=== PATIENT | male | born 1965 | race Caucasian/White ===

== ENCOUNTER 2019-09-05 02:00 | Emergency (ER) | payer BC ==
[2019-09-05] MEDS ORDERED: NS 0.9% 1000 ML** 1,000 ML IV ONE (02:11)
--- NOTE | 2019-09-05 02:23 | ED ---
Neck Pain - HPI Summary HPI Summary: This pt is a 54 Y/O M presenting to [facility] accompanied by his with a CC of throat swelling and pain, rated a 6/10 in severity, that has been present since 0900 09/04/19. He states that it feels like there is something there. He was prescribed ABx Tx by his PCP but states that he has had no positive effect. He denies any fever, SOB, headaches, CP, and N/V. He has no aggravating or alleviating factors. He has a pertinent FHx of HTN and is currently taking Lisinopril. - History of Current Complaint Chief Complaint: EDThroatPain Stated Complaint: SWOLLEN THROAT PER PT Time Seen by Provider: 09/05/19 02:11 Hx Obtained From: Patient Onset/Duration Of Injury/Symptoms: Hours - 17 Timing: Constant Onset/Duration: Sudden Onset, Still Present Severity Initially: Moderate Severity Currently: Moderate Pain Intensity: 6 Pain Scale Used: 0-10 Numeric Location: Diffuse - throat Character: Other: - swollen Aggravating Factors: Nothing Alleviating Factors: Nothing Associated Signs & Symptoms: Positive: Negative - SOB, CP, and N/V., Swelling. Negative: Fever, Headache - Allergies/Home Medications Allergies/Adverse Reactions: Allergies Allergy/AdvReac Type Severity Reaction Status Date / Time No Known Allergies Allergy Verified 09/05/19 02:04 Home Medications: Home Medications Albuterol Sulfate Hfa 1 puff INH SEE INSTRUCTIONS 09/05/19 [History Confirmed ] Amoxicillin/Clavulanate TAB* [Augmentin TAB 875*] 1 tab PO Q12HR 09/05/19 [ History Confirmed 09/05/19] Codeine Phosphate/Guaifenesin [Guaiatussin AC Liquid] 10 ml PO Q6HR 09/05/19 [ History Confirmed 09/05/19] Imitrex TAB* 1 tab PO SEE INSTRUCTIONS 09/05/19 [History Confirmed 09/05/19] Lidocaine 2% VISCOUS* 5 ml PO Q6HR 09/05/19 [History Confirmed 09/05/19] Lisinopril 1 tab PO DAILY 09/05/19 [History Confirmed 09/05/19] PMH/Surg Hx/FS Hx/Imm Hx Previously Healthy: Yes Respiratory History: Reports: Hx Asthma - YEARS AGO Infectious Disease History: No Infectious Disease History: Denies: Traveled Outside the [place] in Last 30 Days - Family History Known Family History: Positive: Hypertension - Social History Occupation: Employed Full-time Lives: With Family Alcohol Use: Rare Hx Substance Use: No Substance Use Type: Reports: None Hx Tobacco Use: No Smoking Status (MU): Never Smoked Tobacco Review of Systems Negative: Fever ENT: Other - swollen throat Positive: Sore Throat Negative: Chest Pain Negative: Shortness Of Breath Negative: Vomiting, Nausea Negative: Headache All Other Systems Reviewed And Are Negative: Yes Physical Exam - Summary Physical Exam Summary: Appearance: Well-appearing, Well-nourished, lying in bed comfortably Skin: Warm, dry, no obvious rash Eyes: sclera anicteric, no conjunctival pallor ENT: mucous membranes moist, pharynx appears normal, mild swelling on the left anterior neck, fulvous in appearance Neck: Supple, nontender Respiratory: Clear to auscultation, no signs of respiratory distress. No stridor and voice is horse Cardiovascular: Normal S1, S2. No murmurs. Normal distal pulses in tibial and radial bilaterally. Abdomen: Soft, nontender, normal active bowel sounds present Musculoskeletal: Normal, Strength/ROM Intact Neurological: A&Ox3, awake and alert, mentation is normal, speech is fluent and appropriate Psychiatric: affect is normal, does not appear anxious or depressed Triage Information Reviewed: Yes Vital Signs On Initial Exam: Initial Vitals Temp Pulse Resp BP Pulse Ox 97.1 F 83 14 169/114 94 09/05/19 02:01 09/05/19 02:01 09/05/19 02:01 09/05/19 02:01 09/05/19 02:01 Vital Signs Reviewed: Yes Procedures - Sedation Patient Received Moderate/Deep Sedation with Procedure: No Diagnostics - Vital Signs Vital Signs Temp Pulse Resp BP Pulse Ox 09/05/19 02:01 97.1 F 83 14 169/114 94 - Laboratory Result Diagrams: 09/05/19 02:27 09/05/19 02:27 Lab Statement: Any lab studies that have been ordered have been reviewed, and results considered in the medical decision making process. - CT Neck CT CT Interpretation Completed By: Radiologist Summary of CT Findings: 1. Very minimal right maxillary sinus disease. 2. Otherwise negative CT soft tissue neck. No abscess is seen. ED physician has reviewed this report. Neck Course/Dx - Course Course Of Treatment: This pt is a 54 Y/O M presenting to [facility] accompanied by his with a CC of throat swelling and pain that has been present since 0900 09/04/19. He states that it feels like there is something there. He was prescribed ABx Tx by his PCP but states that he has had no positive effect. His PE found that he had a fulvous and swollen left anterior neck with a normal pharynx. His respiratory exam found that he had no stridor and his voice was horse. The rest of his exam was normal. He has abnormaliteis in his BUN/ Creatinine ratio. His Neck CT found the followin. Very minimal right maxillary sinus disease. 2. Otherwise negative CT soft tissue neck. No abscess is seen. He will be discharged home with a Dx of phayrngitis. - Diagnoses Provider Diagnoses: Pharyngitis Discharge ED - Sign-Out/Discharge Documenting (check all that apply): Patient Departure - discharge - Discharge Plan Condition: Good Disposition: HOME Patient Education Materials: Pharyngitis (ED) Referrals: Dorian Brian NP [Primary Care Provider] - 3 Days (if not improving) - Billing Disposition and Condition Condition: GOOD Disposition: Home - Attestation Statements Document Initiated by Juan: Yes Documenting Bethibe: Dick May Provider For Whom Juan is Documenting (Include Credential): Genaro Macias MD Scribe Attestation: Dick Whitehead, scribed for Genaro Macias MD on 09/05/19 at 1904. Scribe Documentation Reviewed: Yes Provider Attestation: The documentation as recorded by the Dick urbina accurately reflects the service I personally performed and the decisions made by me, Genaro Macias MD Status of Scribe Document: Viewed
[2019-09-05 02:34] LABS: ABS Eosinophils 0.3 10^3/ul (0-0.6); ABS Lymphocytes 1.5 10^3/ul (1.0-4.8); ABS Monocytes 0.5 10^3/ul (0-0.8); ABS Neutrophils 3.7 10^3/ul (1.5-7.7); Eosinophil % 4.7 %; Hematocrit 45 % (42-52); Hemoglobin 15.3 g/dL (14.0-18.0); Lymphocyte % 24.1 %; Mean Corpuscular HGB Conc 34 g/dL (31-36); Mean Corpuscular Hemoglobin 30 pg (27-31); Mean Corpuscular Volume 86 fL (80-94); Mean Platelet Volume 6.3 fL (7.4-10.4); Nucleated Red Blood Cells % 0.2; Platelet Count 202 10^3/uL (150-450); Red Blood Count 5.16 10^6 /uL (4.18-5.48); Red Cell Distribution Width 13 % (10-15); White Blood Count 6.1 10^3/uL (3.5-10.8)
[2019-09-05 02:50] LABS: Albumin 4.2 g/dL (3.2-5.2); Albumin/Globulin Ratio 1.5 (1-3); BUN/Creatinine Ratio 23.8 (8-20); C Reactive Protein 3.21 mg/L (<8.01); Calcium 9.2 mg/dL (8.6-10.3); EGFR African American 115.7 (>60); EGFR Non-African American 95.6 (>60); Globulin 2.8 g/dL (2-4); Potassium 3.6 mmol/L (3.5-5.0); Total Bilirubin 0.9 mg/dL (0.2-1.0)
[2019-09-05] MEDS ORDERED: Iohexol 300* (CONTRAST) 10 ML SDV IV ONE (02:59)
[2019-09-05 04:40] VITALS: BP 147/92
== END 2019-09-05 04:26 | disposition home or self-care (01) ==
LOC: ED 02:00
DX: J02.9 Acute pharyngitis, unspecified (principal); J32.0 Chronic maxillary sinusitis; J45.909 Unspecified asthma, uncomplicated
CPT/HCPCS: 36415; 70491; 80053; 85025; 86140; 96360; 96361; 99283; Q9967

== ENCOUNTER 2019-09-05 22:27 | Inpatient (IN) | payer BC ==
--- NOTE | 2019-09-06 00:34 | ED ---
Throat Pain/Nasal Congestion - HPI Summary HPI Summary: This patient is a 54 year old male presenting to [facility] with a chief complaint of having a pill stuck in his throat for 30 minutes. He states he was discharged at 0300 for a similar issue and had a CT to rulle out abscess/ obstruction. He states he is having difficulty swallowing and cannot even swallow his own saliva. The patient states no airway compromised but has hoarse voice and sore throat. He denies fever. - History of Current Complaint Chief Complaint: EDForeignBodyEsophag Time Seen by Provider: 09/06/19 00:27 Hx Obtained From: Patient Onset/Duration: Lasting Minutes - Allergies/Home Medications Allergies/Adverse Reactions: Allergies Allergy/AdvReac Type Severity Reaction Status Date / Time No Known Allergies Allergy Verified 09/05/19 22:34 PMH/Surg Hx/FS Hx/Imm Hx Endocrine/Hematology History: Denies: Hx Diabetes Cardiovascular History: Reports: Hx Hypertension Respiratory History: Reports: Hx Asthma - YEARS AGO History: Denies: Hx Renal Disease Infectious Disease History: No Infectious Disease History: Denies: Traveled Outside the [place] in Last 30 Days - Family History Known Family History: Positive: Hypertension - Social History Alcohol Use: Rare Hx Substance Use: No Substance Use Type: Reports: None Hx Tobacco Use: No Smoking Status (MU): Never Smoked Tobacco Review of Systems Negative: Fever Positive: Sore Throat, Other - Hoarse voice/Possible foreign body obstruction All Other Systems Reviewed And Are Negative: Yes Physical Exam - Summary Physical Exam Summary: Appearance: Well-appearing, Well-nourished, lying in bed comfortable Skin: Warm, dry, no obvious rash Eyes: sclera anicteric, no conjunctival pallor ENT: mucous membranes moist Neck: deferred Respiratory: No signs of respiratory distress Cardiovascular: Appears well perfused, pulses are nml Abdomen: deferred Musculoskeletal: Moving all 4 extremities without obvious discomfort Neurological: Awake and alert, mentation is normal, speech is fluent and appropriate Psychiatric: affect is normal, does not appear anxious or depressed Triage Information Reviewed: Yes Vital Signs On Initial Exam: Initial Vitals Temp Pulse Resp BP Pulse Ox 97.2 F 97 20 173/118 96 09/05/19 22:29 09/05/19 22:29 09/05/19 22:29 09/05/19 22:29 09/05/19 22:29 Vital Signs Reviewed: Yes Procedures - Sedation Patient Received Moderate/Deep Sedation with Procedure: No Diagnostics - Vital Signs Vital Signs Temp Pulse Resp BP Pulse Ox 09/05/19 22:29 97.2 F 97 20 173/118 96 - Laboratory Result Diagrams: 09/07/19 05:39 09/07/19 05:39 Lab Statement: Any lab studies that have been ordered have been reviewed, and results considered in the medical decision making process. EENT Course/Dx - Course Course Of Treatment: This patient is a 54 year old male presenting to [facility] with a chief complaint of having a pill stuck in his throat for [address] Shultz, ENT, performed a nasolaryngoscopy in the ED and determined that he patient has supraglottitis and would need to be admitted. At the time of my evaluation he did not have any stridor or other sign of impending airway obstruction. Dr. Mustafa, Hositalist, accepted the patient for admission. This plan was discussed with the patient and he was agreeable with this plan. - Diagnoses Provider Diagnoses: Supraglottitis - Provider Notifications Discussed Care Of Patient With: Nick Shultz - ENT Time Discussed With Above Provider: 01:12 Discharge ED - Sign-Out/Discharge Documenting (check all that apply): Patient Departure - Admission - Discharge Plan Condition: Improved Disposition: ADMITTED TO [facility] - Billing Disposition and Condition Condition: IMPROVED Disposition: Admitted to [facility] - Attestation Statements Document Initiated by Juan: Yes Documenting Scribe: Gareth Pope Provider For Whom Juan is Documenting (Include Credential): Genaro Macias MD Scribe Attestation: IGareth, scribed for Genaro Macias MD on 09/10/19 at 1805. Scribe Documentation Reviewed: Yes Provider Attestation: The documentation as recorded by the Gareth urbina accurately reflects the service I personally performed and the decisions made by me, Genaro Macias MD Status of Scribe Document: Viewed
[2019-09-06] MEDS ORDERED: NS 0.9% 1000 ML** 1,000 ML IV ONE (01:20)
[2019-09-06] MEDS ORDERED: Lidocaine 4% TOPICAL* 50 ML TOP.SOLN TOPICAL ONE (01:21)
[2019-09-06] MEDS ORDERED: Dexamethasone IV* 4 MG/ML 1 ML (4 MG) PO ONE (01:21)
[2019-09-06] MEDS ORDERED: Oxymetazoline 0.05% NASAL SPR* 15 ML BTL BOTH NARES ONE (01:21)
[2019-09-06 01:43] LABS: ABS Eosinophils 0.2 10^3/ul (0-0.6); ABS Lymphocytes 1.3 10^3/ul (1.0-4.8); ABS Monocytes 0.6 10^3/ul (0-0.8); ABS Neutrophils 5.9 10^3/ul (1.5-7.7); Eosinophil % 2.6 %; Hematocrit 45 % (42-52); Hemoglobin 15.9 g/dL (14.0-18.0); Lymphocyte % 16.6 %; Mean Corpuscular HGB Conc 36 g/dL (31-36); Mean Corpuscular Hemoglobin 30 pg (27-31); Mean Corpuscular Volume 85 fL (80-94); Mean Platelet Volume 6.3 fL (7.4-10.4); Platelet Count 212 10^3/uL (150-450); Red Blood Count 5.25 10^6 /uL (4.18-5.48); Red Cell Distribution Width 13 % (10-15); White Blood Count 8.1 10^3/uL (3.5-10.8)
[2019-09-06] MEDS ORDERED: cefTRIAXone(*) 1 GM in NS 0.9% 50 ML* 50 ML IVPB ONE (03:26)
--- NOTE | 2019-09-06 04:48 | CONS ---
CONSULTATION NOTE: DATE OF CONSULT: 09/06/19 CONSULTING PHYSICIAN: Dr. Shultz. REQUESTING CONSULTATION: Dr. Macias in the emergency room. REASON FOR CONSULTATION: Hoarseness and sore throat and dysphagia. HISTORY OF PRESENT ILLNESS: The patient is a 54-year-old who, over the past several days, has had increasing pain in his throat, he states like having glass there, and difficulty swallowing. He went to his primary care doctor, was started on amoxicillin, but it is getting worse. He is not even able to swallow his pills and presented to the emergency room. This is actually a second time here. He has previously had imaging and blood work that did not show anything concerning, but with progression of his symptoms, he returned and I was called this morning for my advice and consultation. I had recommended he get some dexamethasone and intravenous antibiotics. My suspicion was for a supraglottitis. PHYSICAL EXAMINATION: He is, on physical examination, alert and oriented and conversing without difficulty, but with a hoarse voice, stating that his throat hurts quite a bit and he is unable to swallow. Oropharynx examination is normal without any masses, lesions, exudates, or erythema. Neck is soft, but tender. Nasolaryngoscopy was performed after spraying his nose with Kris-Synephrine and 4 % lidocaine. The nasolaryngoscope was inserted. He has diffuse inflammation of his supraglottis, aryepiglottic folds, and false vocal cords. There is not any significant swelling that I am concerned for obstruction at this time, but he is very erythematous, had some exudate and what looks like a viral exanthem with an eruption along this area. Vocal cords are normal with full abduction, adduction, no erythema, and the subglottis is clear. The remainder of his hypopharyngeal examination, base of the tongue looks normal. ASSESSMENT: The patient has a supraglottitis causing dysphagia, throat pain, and dysphonia. RECOMMENDATIONS: He is going to need some intravenous hydration because he is not able to swallow, some steroids for pain and to prevent swelling. This is probably viral, but a bacterial infection cannot be ruled out , so I would treat with some intravenous antibiotics as well. [id number]/CPS #: [id number] [facility]
[2019-09-06] MEDS ORDERED: Vancomycin(*) 1,000 MG in NS 0.9% 250 ML* 250 ML IVPB ONE (05:07)
[2019-09-06] MEDS ORDERED: Albuterol HFA INHALER* 8 gm MDI INH PRN (05:14)
[2019-09-06] MEDS ORDERED: hydrALAZINE IV* 20 MG/ML VIAL IV SLOW PU PRN (05:28)
[2019-09-06] MEDS ORDERED: NS 0.9% 1000 ML** 1,000 ML IV SCH (05:30)
[2019-09-06] MEDS ORDERED: Vancomycin per Pharmacy* NOTE FOLLOW UP SCH (06:00)
[2019-09-06] MEDS ORDERED: Vancomycin(*) 2,000 MG in NS 0.9% 500 ML* 500 ML IVPB ONE (06:00)
[2019-09-06] MEDS: NS 0.9% 1000 ML** 1,000 ML IV SCH ×2 (07:05→18:14)
[2019-09-06] MEDS: methylPREDNISolone 125 MG* 2 ML VIAL IV SCH ×2 (08:12→19:12)
--- NOTE | 2019-09-06 09:33 | HP ---
CC: Nick Shultz MD; Dorian Brian NP * HISTORY AND PHYSICAL: DATE OF ADMISSION: 09/06/19 PRIMARY CARE PHYSICIAN: Dorian Brian NP CHIEF COMPLAINT: Difficulty swallowing. HISTORY OF PRESENT ILLNESS: This is a 54-year-old male with past medical history of asthma, migrainous headache, hypertension, allergic rhinitis, a 3- day history of cough and sore throat and for which he saw his primary care physician, who recommended some Augmentin. The patient tried taking his Augmentin and felt like his pill was stuck and he was not able to tolerate anything p.o. for the last 2 days and yesterday he was having difficulty swallowing anything other than water, so he came in to the ER and was subsequently sent home after being evaluated. However, post discharge, the patient returned to the ER within 12 hours stating that he cannot even tolerate liquids and water and unable to keep his saliva and he has had recurrent vomiting. Otherwise, he denies any other fevers, chills, shortness of breath, chest pain, and no other lower extremity swelling, numbness, tingling, or weakness. PAST MEDICAL HISTORY: As mentioned history of hypertension, asthma, allergic rhinitis, migraine. PAST SURGICAL HISTORY: He has had right lower extremity vein stripping for varicose veins. HOME MEDICATIONS: The patient is currently on: 1. Verapamil 240 mg oral daily. 2. Singulair 10 mg oral daily. 3. Nasonex 50 mcg daily. 4. Lisinopril 1 tablet 20 mg oral daily. 5. Lidocaine 5 mL p.o. q.6 hours. 6. Imitrex 1 tablet as needed for migraines. 7. Guaifenesin AC liquid 10 mL p.o. q.6 hours. 8. Augmentin 875 one tablet every 12 hours. 9. Albuterol 1 puff by inhalation up to 4 times a day. ALLERGIES: No known drug allergies. FAMILY HISTORY: Mother age 83, otherwise alive, no medical problems. Father at age 56 due to an IA. Sister and brother both have diabetes and another brother has high blood pressure. SOCIAL HISTORY: The patient is , lives with his . 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 Denies any smoking, alcohol or drug use. He is otherwise full code with his , Lizette being the healthcare proxy. REVIEW OF SYSTEMS: A 14-point review of systems did not reveal any new information other than the ones in the HPI. PHYSICAL EXAMINATION GENERAL: The patient is awake, alert, and did not appear to be in any acute distress. VITAL SIGNS: In the ER, BP was noted to be 157/98, heart rate 88, respiratory rate 20, saturating 95% on room air. Temperature was documented at 97.2. HEAD AND NECK: Atraumatic, normocephalic. Bilateral pupils are reactive. Oral mucosa showed some erythema. Neck: Supple. No jugular venous distention. LUNGS: Clear to auscultation bilaterally. No wheezing, rhonchi, or rales. HEART: S1, S2. Regular rate and rhythm. ABDOMEN: Soft, nontender, nondistended. EXTREMITIES: No cyanosis, clubbing, or edema. DIAGNOSTIC STUDIES/LAB DATA: Labs, both yesterday's and today's CBC were noted to be within normal limits. Comprehensive metabolic panel yesterday was noted to be within normal limits. C-reactive protein was noted to be elevated compared to yesterday at 12.9. CT neck performed yesterday showed very minimal right maxillary sinus disease, otherwise, negative CT soft tissue of the neck. No abscesses seen. Nasolaryngoscopy performed by Dr. Shultz, ENT, showed a diffuse inflammation of his supraglottis, aryepiglottic folds, and false vocal cords. There is not any significant swelling that was concerning for any obstruction, but it is very erythematous and had some exudate and what looks like a viral exanthem with an eruption along the area. IMPRESSION: This is a 54-year-old gentleman with past medical history of asthma , hypertension, allergic rhinitis, here due to supraglottitis causing dysphagia , throat pain, and dysphonia. ASSESSMENT AND PLAN: 1. Supraglottitis. As recommended by ENT, we will start the patient on IV fluids. Keep the patient n.p.o. and start the patient on broad spectrum antibiotics with vanco and ceftriaxone as per the antibiotic recommendation from Up-to-date. I will also keep the patient in ICU as recommended per Up-to- date for close monitoring in case the patient develops any respiratory distress. 2. History of hypertension. Unable to give any oral medication due to his swallowing difficulty. We will start the patient on p.r.n. IV hydralazine. 3. History of asthma. Start the patient on some nebulizers p.r.n. We will hold the Singulair for now. 4. History of allergic rhinitis. Can continue the Nasonex. 5. History of migraine. We will hold verapamil for now. 6. DVT prophylaxis with sequential compression device. 7. Code status. Full code. [id number]/CPS #: [id number] [facility]
[2019-09-06] MEDS: Fluticasone NASAL SPRAY 50MCG* 16 gm SPRAY BTL BOTH NARES SCH (10:44)
--- NOTE | 2019-09-06 13:10 | PN ---
Subjective Date of Service: 09/06/19 Interval History: Pt stated that he can swallow now but it hurts to do so. Uses suction intermittently. Denies SOB Objective Active Medications: Albuterol (Ventolin Hfa Inhaler*) 1 puff INH Q4H PRN PRN Reason: SOB/WHEEZING Fluticasone Propionate (Flonase Nasal Selma 50mcg*) 2 spray BOTH NARES DAILY [facility] Last Admin: 09/06/19 10:44 Dose: 2 spray Hydralazine HCl (Apresoline Iv*) 5 mg IV SLOW PU Q6H PRN PRN Reason: Systolic Bp Greater Than:160 Sodium Chloride (Ns 0.9% 1000 Ml) 1,000 mls @ 100 mls/hr IV PER RATE [facility] Last Admin: 09/06/19 07:05 Dose: 100 mls/hr Ceftriaxone Sodium 1 gm/ (Sodium Chloride) 50 mls @ 100 mls/hr IVPB Q24H [facility] Methylprednisolone Sodium Succinate (Solu-Medrol 125mg *) 60 mg IV Q12H [facility] Last Admin: 09/06/19 08:12 Dose: 60 mg Pharmacy Consult (Vancomycin Per Pharmacy*) 1 note FOLLOW UP .VANC PER PHARMACY [facility]; Protocol Vital Signs - 8 hr 09/06/19 09/06/19 09/06/19 05:08 05:39 06:00 Temperature Pulse Rate Respiratory 14 19 Rate Blood Pressure 136/91 131/93 (mmHg) O2 Sat by Pulse Oximetry 09/06/19 09/06/19 09/06/19 06:36 06:37 06:45 Temperature 98.2 F 0 F Pulse Rate 99 0 95 Respiratory 23 0 18 Rate Blood Pressure 156/104 0/0 130/92 (mmHg) O2 Sat by Pulse 94 0 95 Oximetry 09/06/19 09/06/19 09/06/19 07:00 07:15 07:29 Temperature Pulse Rate 95 97 98 Respiratory 14 24 15 Rate Blood Pressure 134/94 152/106 138/104 (mmHg) O2 Sat by Pulse 93 94 92 Oximetry 09/06/19 09/06/19 09/06/19 07:30 08:00 09:00 Temperature Pulse Rate 89 85 92 Respiratory 18 15 14 Rate Blood Pressure 144/99 (mmHg) O2 Sat by Pulse 93 94 94 Oximetry 09/06/19 09/06/19 09/06/19 09:02 09:30 10:00 Temperature Pulse Rate 101 93 101 Respiratory 13 16 19 Rate Blood Pressure 138/83 140/94 141/101 (mmHg) O2 Sat by Pulse 92 94 93 Oximetry Oxygen Devices in Use Now: None Appearance: 54 yo M in nAD, aAOx3 Eyes: No Scleral Icterus, PERRLA Ears/Nose/Mouth/Throat: NL Teeth, Lips, Gums, Mucous Membranes Moist, - - oropharynx erythema of pharyngeal arches noted Neck: NL Appearance and Movements; NL JVP, Trachea Midline, - - no stridor on ascultation Respiratory: Symmetrical Chest Expansion and Respiratory Effort, Clear to Auscultation Cardiovascular: NL Sounds; No Murmurs; No JVD, RRR Abdominal: NL Sounds; No Tenderness; No Distention, No Hepatosplenomegaly Lymphatic: No Cervical Adenopathy Extremities: No Edema, No Clubbing, Cyanosis Skin: No Rash or Ulcers, No Nodules or Sclerosis Neurological: Alert and Oriented x 3, NL Muscle Strength and Tone Result Diagrams: 09/06/19 01:35 Microbiology and Other Data: Microbiology 09/06/19 06:55 Nasal Screen MRSA (PCR) - Final Nasal Mrsa Not Detected Assess/Plan/Problems-Billing Assessment: 54 yo M with h/o HTN, asthma , migraines presented with throat pain and inability to swallow. Dx supraglottitis by Dr. Shultz - Patient Problems (1) Supraglottitis Comment: with subsequent problems swallowing. cont IV steroids and antibiotics: Vanc/Ceftriaxone cont to monitor in ICU, place on clears and monitor (2) HTN (hypertension) Comment: PO meds held due to dysphagia monitor (3) DVT prophylaxis Comment: low risk, ambulation Status and Disposition: inpatient
[2019-09-06] MEDS: Vancomycin(*) 1,500 MG in NS 0.9% 250 ML* 250 ML IVPB SCH ×2 (13:49→21:26)
[2019-09-06] MEDS ORDERED: Ketorolac INJ* 15 MG/ML 1 ML VIAL IV PUSH PRN (19:48)
[2019-09-06] MEDS ORDERED: Ketorolac INJ* 15 MG/ML 1 ML VIAL ONE (19:57)
[2019-09-07] MEDS: NS 0.9% 1000 ML** 1,000 ML IV SCH (02:53)
[2019-09-07 05:47] LABS: ABS Basophils 0.1 10^3/ul (0-0.2); ABS Lymphocytes 1.4 10^3/ul (1.0-4.8); ABS Monocytes 0.7 10^3/ul (0-0.8); ABS Neutrophils 10.8 10^3/ul (1.5-7.7); Hematocrit 47 % (42-52); Hemoglobin 16.4 g/dL (14.0-18.0); Lymphocyte % 10.9 %; Mean Corpuscular HGB Conc 35 g/dL (31-36); Mean Corpuscular Hemoglobin 30 pg (27-31); Mean Corpuscular Volume 86 fL (80-94); Mean Platelet Volume 6.6 fL (7.4-10.4); Platelet Count 278 10^3/uL (150-450); Red Blood Count 5.47 10^6 /uL (4.18-5.48); Red Cell Distribution Width 13 % (10-15)
[2019-09-07] MEDS ORDERED: cefTRIAXone(*) 1 GM in NS 0.9% 50 ML* 50 ML IVPB SCH (06:00)
[2019-09-07 06:03] LABS: BUN/Creatinine Ratio 19.7 (8-20); Calcium 9.6 mg/dL (8.6-10.3); EGFR African American 152.8 (>60); EGFR Non-African American 126.3 (>60); Potassium 3.7 mmol/L (3.5-5.0)
[2019-09-07] MEDS: Vancomycin(*) 1,500 MG in NS 0.9% 250 ML* 250 ML IVPB SCH (06:05)
[2019-09-07] MEDS: methylPREDNISolone 125 MG* 2 ML VIAL IV SCH (08:06)
[2019-09-07] MEDS: Fluticasone NASAL SPRAY 50MCG* 16 gm SPRAY BTL BOTH NARES SCH (08:06)
[2019-09-07] MEDS ORDERED: Pneumococcal *Vac Polyvalent 0.5 ML VIAL IM ONE (09:00)
--- NOTE | 2019-09-07 11:46 | DS ---
CC: Dr. Shultz; Dorian Brian NP * DISCHARGE SUMMARY: DATE OF ADMISSION: 09/06/19 DATE OF DISCHARGE: 09/08/19 PRIMARY CARE PROVIDER: Dorian Brian NP DISPOSITION AT DISCHARGE: Home. CONDITION ON DISCHARGE: Stable. DISCHARGE DIAGNOSIS: Acute supraglottis causing severe dysphagia and inability to swallow. SECONDARY DIAGNOSES: 1. Hypertension. 2. Asthma. 3. Allergic rhinitis. 4. Migraine. MEDICATIONS AT DISCHARGE: Include: 1. Albuterol inhaler on a p.r.n. basis. 2. Codeine with guaifenesin syrup 10 mg on p.r.n. basis. 3. Imitrex on a p.r.n. basis. 4. Viscous lidocaine 2% solution 5 mL every 6 hours p.r.n. 5. Lisinopril 20 mg daily. 6. Nasonex spray 50 mcg once spray nasal daily. 7. Singulair 10 mg daily. 8. Verapamil ER 240 mg daily. 9. Azithromycin suspension 250 mL daily for a total of 5 days and stop. 10. Cefdinir 300 mg b.i.d. for a total of 6 days and stop. 11. Prednisone 40 mg for 2 days, then 20 mg for 2 days, then 10 mg for 2 days, then stop. HOSPITALIZATION COURSE: Harshal Vizcaino is a 54-year-old male who presented to the hospital on 09/06/19 with problems with difficulty swallowing. The patient stated that originally he had problems with postnasal drip and then he developed sore throat. On 09/06/19, he was unable to swallow, he came into the ED for evaluation. Here, Dr. Shultz performed his evaluation and noted that the patient has acute supraglottis. The patient was admitted to the intensive care unit. He did not appear to have an airway compromise at any point, but he was unable to swallow his own secretions and used Yankauer suction in the initial 24 hours of his hospital stay. The patient was placed on broad- spectrum antibiotics as well as Solu-Medrol with good result. By the time of discharge, he was able to tolerate regular diet. His throat is still sore when swallowing slightly so on the left side. The patient had been afebrile. His blood cultures had been negative. He is going to be discharged home. Recommendation to follow up his primary care provider in 4 to 7 days. He is going to be discharged on a course of taper off steroids and third- generation cephalosporin and azithromycin. LABORATORY DATA: During the hospital stay included: On 09/07/19, white blood cell count of 13.0, hemoglobin 16.4, hematocrit 47, platelets of 178. Sodium is 138, potassium 3.0, chloride 107, carbon dioxide 34, BUN 13, creatinine 0.77. Blood cultures were negative. PHYSICAL EXAMINATION: At the time of discharge, blood pressure of 147/90, heart rate of 85 and regular, respiratory rate 19, oxygen saturation 95% on room air, temperature of 97.2. General: The patient is a very pleasant 54-year -old male, who is in acute distress. Alert, awake, and oriented x3. HEENT: Head: Atraumatic, normocephalic. Eyes: Pupils equal, reactive to light and accommodation. Oropharynx without exudates, but slight erythema of pharyngeal arch is noted. Neck: Supple. No JVD, no bruits bilaterally. No tenderness on palpation. Respiratory: Clear to auscultation bilaterally. Cardiovascular : Regular rate and rhythm. No murmur. Abdomen: Soft, nontender. Bowel sounds present in all 4 quadrants. Extremities: There is no edema. Pulses are +2 bilaterally. No clubbing, cyanosis. Neuro Evaluation: Speech is clear. Cranial nerves II through XII grossly intact. Motor strength is 5/5 bilaterally. Please note that this is a short summary of the patient's hospitalization, please refer to further medical records for details. TIME SPENT: Approximately 40 minutes was spent on the patient's discharge. [id number]/[facility] #: [id number] TRISTIN
[2019-09-07 12:48] VITALS: BP 139/88
[2019-09-08] MEDS ORDERED: Vancomycin Trough Check NOTE FOLLOW UP ONE (05:30)
[2019-09-08] MEDS ORDERED: predniSONE TAB* 20 MG PO SCH (09:00)
== END 2019-09-07 12:40 | disposition home or self-care (01) | DRG 113 ==
LOC: ED 22:27 → ICU 09-06 04:43
PROVIDERS: ADMIT Internal Medicine; ATTEND Internal Medicine
DX: J04.30 Supraglottitis, unspecified, without obstruction (principal); R13.10 Dysphagia, unspecified; I10 Essential (primary) hypertension; J30.9 Allergic rhinitis, unspecified; R49.0 Dysphonia; G43.909 Migraine, unspecified, not intractable, without status migrainosus; Z79.51 Long term (current) use of inhaled steroids; Z79.899 Other long term (current) drug therapy; Z82.49 Family history of ischemic heart disease and other diseases of the circulatory system; Z83.3 Family history of diabetes mellitus
CPT/HCPCS: 36415; 80048; 85025; 86140; 87040; 87641; 90732; 96374; 99283; A9270-GY; J0696; J1100; J1885; J2930; J3370